=== PATIENT | female | born 1990 ===

== ENCOUNTER 2018-09-29 06:48 | Emergency (ER) | payer MEDICAID, SELFPAY ==
[2015-08-29 15:02] VITALS: BMI 31.8
--- NOTE | 2018-09-29 09:22 | OBHP ---
Datetime: 09/29/2018 08:42 IP Adm Impression: Term, intrauterine IP Admit Plan: Observation/Evaluation; Discharge home Admit Comment, IP Provider: 28 y/o @ 39.5 w/HOMA of 10/01/2018 complaining of ctxs since [address] night every hour that increased to every 10 minutes this AM. She endorses +FM, and denies loss of fluid. Denies any f/c/n/v/chest discomfort or difficulty breathing.Patient sees Dr. Lombardi @ [place]. OBGYNhx: 1 , 2014 PMH: denies Allergies: NKA Meds: PNV Famhx: denies Sochx: denies cigarette, EtOH or elicit drug use Surghx: denies ROS: all points reviwed and neg unless otherwise mentioned in HPI Gen: laying upright in bed breathing comforting Cardio: s1 s2, no murmurs Lungs: resp effort good; cta Abd: soft, BS+, nontender Pelvic: 3cm dilated Ext: nonedematous A/P: 28 y/o @ 39.5 w/HOMA of 10/01/2018 complaining of ctx. -3cm dilated; rechecked in 1 hr and cervical exam remained unchanged -Patient discharged home with labor precautions Case discussed with Dr. Best/Dr. La -Sanj[facility] , PGY-[address] La: I have evaluated the patient independently and I agree with the above Extremities - PN: Normal Abdomen - PN: Normal Lungs - PN: Normal Heart - PN: Normal General - PN: Normal Membranes, Provider: Intact Gestation - Est Wks by US: 39.5 Pool Provider: Negative IP Hx Assessment: The History has been Reviewed and is Current EGA AdmitDate IP: 39.5 Vital Signs Provider: Reviewed IP Chief Complaint: Uterine contractions NICHD Decel Fetus A IP Provider: None Dilatation, Provider: 3 Effacement, Provider: 40 Station, Provider: -3
--- NOTE | 2018-09-29 09:24 | OBDCSUM ---
Datetime: 09/29/2018 09:07 Discharged to, Provider: [facility] Activity: Normal activity Disch Instr Diet: Regular Discharge Diagnosis, Provider: False Labor - Undelivered Discharge Time: 09/29/2018 09:08 Follow up in weeks, Provider: 10/01/18 Disch Referrals: None
[2018-09-29 14:54] VITALS: BP 109/63; PULSE 94; TEMP 98.8; O2SAT 99
== END 2018-09-29 09:24 | disposition home or self-care (01) ==
LOC: H.EROB2 06:48 → H.L&D 06:58 → H.EROB2 09:24
DX: O26.93 Pregnancy related conditions, unspecified, third trimester (principal); R10.2 Pelvic and perineal pain; Z3A.39 39 weeks gestation of pregnancy

== ENCOUNTER 2018-09-29 21:07 | Inpatient (IN) | payer MEDICAID, SELFPAY ==
[2018-09-29 22:03] VITALS: BMI 28.7
[2018-09-29] MEDS ORDERED: Lactated Ringer's 1,000 ML IV ONE (22:07)
[2018-09-29] MEDS ORDERED: Oxytocin 30 UNIT 30 UNITS/500 ML BAG IV ONE (22:08)
[2018-09-29] MEDS ORDERED: Fentanyl/Bupivacaine HCl 250 ML EPI ONE (22:09)
[2018-09-29] MEDS: Lactated Ringer's 1,000 ML IV ONE ×2 (22:22→23:21)
[2018-09-29 22:26] LABS: BASO # 0.1 K/uL (0.0-0.2); BASO % 0.8 % (0.0-2.0); EOS # 0.1 K/uL (0.0-0.7); HEMOGLOBIN 13.3 g/dL (12.0-16.0); LYMPH # 2.4 K/uL (1.0-4.3); LYMPH % 19.9 % (20.0-40.0); MEAN CELL VOLUME 90.7 fl (81.0-99.0); MEAN PLATELET VOLUME 8.8 fl (7.2-11.7); MONO % 8.7 % (0.0-10.0); NEUT # 8.3 K/uL (1.8-7.0); NEUT % 69.6 % (50.0-75.0); RBC 4.45 Mil/uL (3.80-5.20); RED CELL DISTRIBUTION WIDTH 14.8 % (11.5-14.5)
[2018-09-30] MEDS ORDERED: Lidocaine 1% Inj (20ml) ONE (04:46)
[2018-09-30] MEDS: Lactated Ringer's 1,000 ML IV ONE (06:30)
[2018-09-30 06:57] VITALS: RESP 19
--- NOTE | 2018-09-30 07:39 | OBPN ---
Datetime: 09/30/2018 07:34 IP Progress Impression: Normal progression of labor IP Informed Consent Obtain: Vaginal Delivery IP Procedures: Sterile Vag Exam IP Progress Plan: Continue present management Membranes, Provider: Ruptured Amniotic Fluid Color, Provider: Clear Contraction Comments Provider: q 4 mins FHR - Baseline A Provider: 155 IP Progress Note Comment: Patient evaluated, feeling some pressure VE = 10/100/+1, AROM FHR = 150 mod alyssia, no accels, +early decelerations A/P 1. patient progressing well, now in second stage of labor. Will sit in high fowlers and start push ing shortly 2. CEFM and TOCO Vital Signs Provider: Reviewed; Within Normal Limits NICHD Variability Prov Fetus A: Moderate 6-25bpm Dilatation, Provider: 10 Effacement, Provider: 100 Station, Provider: 1 NICHD Decel Fetus A IP Provider: Early Datetime: 09/29/2018 22:26 Pool Provider: Negative Presentation-Admit: Vertex NICHD Accel Fetus A IP Provider: 15X15 FHR Category Provider Fetus A: Category I Datetime: 09/29/2018 08:42 Gestation - Est Wks by US: 39.5
--- NOTE | 2018-09-30 07:41 | OBADHP ---
Datetime: 09/30/2018 07:34 FHR - Baseline A Provider: 155 Amniotic Fluid Color, Provider: Clear Membranes, Provider: Ruptured Contraction Comments Provider: q 4 mins Vital Signs Provider: Reviewed; Within Normal Limits NICHD Variability Prov Fetus A: Moderate 6-25bpm NICHD Decel Fetus A IP Provider: Early Dilatation, Provider: 10 Effacement, Provider: 100 Station, Provider: 1 Datetime: 09/29/2018 22:26 Admit Comment, IP Provider: Malcolme: [id number] Pt is an 28yo F IUP @39.5wk HOMA is 10/01/18 based on LMP 12/25/17 and U/S done on 05/15/18. Pt is here for a contractions every 5 mins, this morning they were every 15 mins at 6am she came to [facility] and was sent home at 3cm dilated. Pt has reddish mucous and clots when she went to the bathroom. Denies LOF, headaches, fevers, dizziness, blurry vision, chest pain, SOB, nausea, vomiting, diarrhea, constipation, dysuria; Reports good movement. 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 Lungs: clear to auscultation bilaterally, no wheezing, rales or rhonchi Abdomen: Gravid, soft non tender to palpation, + BS LE: No edema Heart Rate: 150, moderate variability, Category 1, 15x15 Bimanual- 4-5cm, 70% effaced, -3 A/P: 28yo F IUP @39.5wk here with contractions Q 5mins -Admit to L _ D -Initiate Labor protocol -Bimanual -4-5cm, 70% effaced, -3 -IVF, Pitocin -Ordered 3rd TM labs, HBsAg, HIV, RPR, Type and screen, CBC with Diff -Monitor heart tracings 150 moderate variability, Category 1 , 15x15 -Bedside U/S -cephalic Case reviewed and discussed with Attending Leesa Pino M.D. PGY-[address] La: I have evaluated the patient independently and I agree with the above Pelvic Type - PN: Adequate Extremities - PN: Normal Abdomen - PN: Normal Back - PN: Not Done Breast - PN: Not Done Lungs - PN: Normal Heart - PN: Normal Thyroid - PN: Not Done Neurologic - PN: Not Done HEENT - PN: Normal General - PN: Normal Presentation-Admit: Vertex Comments, ACOG Physical Exam: -Bimanual -4-5cm, 70% effaced, -3 Pool Provider: Negative IP Hx Assessment: The History has been Reviewed and is Current IP Chief Complaint: Uterine contractions; Maternal discomfort NICHD Accel Fetus A IP Provider: 15X15 FHR Category Provider Fetus A: Category I Genitourinary Exam: Normal DTRs - PN: Not Done EGA AdmitDate IP: 39.5 IP Adm Impression: Term, intrauterine ; Intact Membranes IP Admit Plan: Admit to unit; Initiate labor protocol Datetime: 09/29/2018 08:42 Gestation - Est Wks by US: 39.5
[2018-09-30] MEDS ORDERED: Oxycodone/Acetaminophen 5/325 mg Tab PO PRN (08:52)
[2018-09-30] MEDS: OXYTOCIN/0.9 % NS 20 UNIT/1,000 ML BAG IV SCH ×2 (09:20→14:15)
--- NOTE | 2018-09-30 13:05 | OBDS ---
DELIVERY PERSONNEL Delivery Doctor: Aric Best DO Boring Inspector: Nica Munroe RN Resident: Dr. Hernandez MATERNAL INFORMATION Delivery Anesthesia: Local; Epidural Medications in Delivery: Pitcoin 30units in IVF 0.9%NS 500ml Estimated Blood Loss (ml): 30 Placenta Cultured: No Maternal Complications: None RN Comments: Prior to placenta delivery 150ml noted. Total Fluid following delivery of placenta wa s 180ml. EBL: 30ml Provider Comments: of live, viable female infant, apgars 9/9 with infant bulbed suctioned _ bobbi meredith on mother's chest for skin to skin. The cord was double clamped, and then cut by father. Cord bl ood was obtained. Placenta delivered intact spontaneuously. Prior to placenta [id number] of fluid. Total fluid following delivery of placenta was 180cc, Total EBL = 30ml. OB Hospitalist on-call. With PGY1, I attended and did perinela repair LABOR SUMMARY EDC: 10/01/2018 00:00 No. Babies in Womb: 1 Attempted: No Labor Anesthesia: Epidural LABOR INFORMATION Reason for Induction: Not Applicable Onset of Labor: 09/29/2018 06:00 Complete Dilatation: 09/30/2018 07:30 Oxytocin: N/A Group B Beta Strep: Negative Antibiotics # of Doses: n/a Antibiotics Time of Last Dose: n/a Steroids Given: None Reason Steroids Not Administered: Not Applicable MEMBRANES Membranes Rupture Method: Spontaneous Rupture of Membranes: 09/30/2018 07:30 Length of Rupture (hrs): 0.90 Amniotic Fluid Color: Clear Amniotic Fluid Amount: Small Amniotic Fluid Odor: Normal STAGES OF LABOR Stage 1 hrs: 25 Stage 1 min: 30 Stage 2 hrs: 0 Stage 2 min: 54 Stage 3 hrs: 0 Stage 3 min: 18 Total Time in Labor hrs: 26 Total Time in Labor min: 42 VAGINAL DELIVERY Episiotomy: None Laceration Extension: Second Degree Laceration Type: Perineal Laceration Repair: Yes Laceration Repair Note: 2nd degree laceration was repaired with 2.0 vicryl rapide. 1% Lidocain infil trated (3cc) Initial Vag Sponge Count: 5 laps with ring Final Vag Sponge Count: 5 laps with ring Initial Vag Sharps Count: 1 needle, 1 suture Final Vag Sharps Count: 1 needle, 1 suture Sponge Count Correct: Yes Sharps Count Correct: Yes Count Comment: count correct and acknowledged by Dr. Best/Dr. Hernandez. BABY A INFORMATION Infant Delivery Date/Time: 09/30/2018 08:24 Method of Delivery: Vaginal Born in Route : No : N/A Forceps: N/A Vacuum Extraction: N/A Shoulder Dystocia : No SHOULDER DYSTOCIA BABY A Infant Delivery Date/Time: 09/30/2018 08:24 PRESENTATION/POSITION BABY A Presentation: Cephalic Cephalic Presentation: N/A Breech Presentation: N/A PLACENTA INFORMATION BABY A Placenta Delivery Time : 09/30/2018 08:42 Placenta Method of Delivery: Spontaneous Placenta Status: Delivered SCORES BABY A Heart Rate 1 min: >100 bpm Resp Effort 1 min: Good Cry Reflex Irritability 1 min: Cough or Sneeze or Pulls Away Muscle Tone 1 min: Active Motion Color 1 min: Body [place], Extremities Blue Resuscitation Effort 1 min: Tactile Stimulation SCORE 1 MIN: 9 Heart Rate 5 min: >100 bpm Resp Effort 5 min: Good Cry Reflex Irritability 5 min: Cough or Sneeze or Pulls Away Muscle Tone 5 min: Active Motion Color 5 min: Body [place], Extremities Blue Resuscitation Effort 5 min: N/A SCORE 5 MIN: 9 INFORMATION BABY A Gestational Age at Delivery: 39.6 Gestational Status: Term Infant Outcome : Liveborn Infant Condition : Stable Sex: Female IDENTIFICATION/MEDS BABY A ID Band Number: [id number] ID Band Location: Left Leg; Left Arm Vitamin K Given : Not Given Erythromycin Given: Not Given WEIGHT/LENGTH BABY A Birthweight (gms): 2840 Infant Weight (lb): 6 Weight (oz): 4 CORD INFORMATION BABY A No. Cord Vessels: 3 Nuchal Cord : N/A Cord Blood Taken: Yes Suction: Mouth; Nose ASSESSMENT BABY A Complications: None Physical Findings at Delivery: Within Normal Limits Respirations: Appears Normal Quick Service Technician/ALS Called : No Infant Care By: leann Plaza/Thomas/May Transferred To: Remains with Mother
[2018-09-30] MEDS: Benzocaine/Menthol SPRAY TOP PRN (14:17)
[2018-10-01 06:34] LABS: BASO % 0.2 % (0.0-2.0); EOS # 0.2 K/uL (0.0-0.7); EOS % 1.8 % (0.0-4.0); HEMOGLOBIN 11.6 g/dL (12.0-16.0); LYMPH # 2.8 K/uL (1.0-4.3); LYMPH % 22.8 % (20.0-40.0); MEAN CORPUSCULAR HEMOGLOBIN 30.6 pg (27.0-31.0); MEAN CORPUSCULAR HGB CONC 33.3 g/dL (33.0-37.0); MEAN PLATELET VOLUME 8.8 fl (7.2-11.7); MONO # 0.8 K/uL (0.0-0.8); MONO % 6.7 % (0.0-10.0); NEUT # 8.5 K/uL (1.8-7.0); NEUT % 68.5 % (50.0-75.0); NRBC % 0.1 % (0.0-0.0); RBC 3.79 Mil/uL (3.80-5.20); RED CELL DISTRIBUTION WIDTH 14.6 % (11.5-14.5); WHITE BLOOD COUNT 12.4 K/uL (4.8-10.8)
[2018-10-02] MEDS: Benzocaine/Menthol SPRAY TOP PRN (08:58)
[2018-10-02] MEDS ORDERED: Influenza Vaccine (5 YR UP)/PF 60 MCG/0.5 ML SYR IM ONE (09:00)
--- NOTE | 2018-10-02 10:01 | OBPPN ---
Datetime: 10/02/2018 06:32 PP Pain Prov: Within normal limits PP Nausea Prov: Denies PP Flatus Prov: Yes PP BM Prov: No PP Breasts Prov: Not Done PP Heart Prov: Normal PP Lungs Prov: Normal PP Abdomen/Uterus Prov: Normal PP Lochia Prov: Normal PP Vulva/Perineum Prov: Not Done PP CVA Tenderness Prov: Not Done PP Extremities Prov: Abnormal PP Impression Prov: Normal progression; Pain PP Plan Prov: Continue present management; Discharge PP Impression Other Prov: L leg pain PP Progress Note Prov: Voyce: [id number] PPD2 S: 28yo delivered on 09/30/18 @8:24am. Seen and examined at bedside this morning. No acute events overnight. Pt reports L leg pain in the groin region that radiates down the leg to the f oot associated with mild swelling, and mild abdominal pain controlled with pain meds. Ambulating well without dizziness. Breast and bottle feeding without difficulty. Tolerating PO diet. Lochia similar to menses, voiding freely no blood noted, Pt has not had a bowel movement but is passing gas per rect um. Denies fever/chills, diarrhea/constipation, nausea/vomiting, CP/SOB, dizziness. O: PHYSICAL EXAM: GEN: Resting comfortably in bed, NAD HEENT: NCAT, EOMI LUNGS: CTA B/L, no wheezing, rhonchi, or rales CVS: RRR, S1, S2, no m/r/g ABD: ND, +BS, firm fundus @ umbilical level, soft, appropriate TTP EXT: Trace edema noted, No L calf pain on palpation, positive straight leg raise on L A/P: 28yo delivered on 09/30/18 @8:24am. Pt doing well on PPD2 Pain medication for leg pain- controlled with pain meds Tolerating regular diet OOB with caution Continue vitamin Ibuprofen 600 mg 1 tab q6 hrs po if mild pain. Encouraged Anticipate discharge to home on 10/02/18 F/U 4-6 week's post- with Itz Marcum and tenter frame operator in 1 week for a appt- 42 [place] genline Case reviewed and discussed with Attending Leesa Pino M.D. PGY-1 Attending addendum: I saw and examined the patient at bedside myself this morning. I reviewed the resident note above and agree with findings and management. DC home today. Maggie Sauceda MD IP PP Procedures: None Vital Signs Provider PP: Reviewed; Within Normal Limits Datetime: 10/01/2018 06:12 PP C/S Incision Prov: Not Applicable PP Progress Prov: Normal PP Comments Phys Exam Prov: L calf mild tenderness to palpation, positive straight leg raise on L
--- NOTE | 2018-10-02 10:01 | OBDCSUM ---
Datetime: 10/02/2018 06:46 Discharged to, Provider: Home Follow up at, Provider: Itz Marcum Disch Instr Activity: Normal activity Disch Instr Diet: Regular Discharge Instructions, Provider: Routine instructions given Discharge Diagnosis, Provider: Term Delivered Discharge Time: 10/02/2018 06:46 Follow up in weeks, Provider: 4-6 weeks for PP appt and 1 week for appt Disch Referrals: None Contraception discussed, Prov: Yes Disch Activity Restrictions: No exercising; No lifting; Minimize stair-climbing; No sexual activity; Nothing in vagina - [place], tampons, douche Discharge Comment, Provider: DISCHARGE 28yo delivered on 09/30/18 @8:24am. Pt doing well on PPD2 EGA: 39.5 weeks Diagnosis: Summary of : No complications DOD: 09/30 @ 8:24am Sex: Female Weight: 2840gm : 99 Feeding: Breast and bottle summary: Pt endorsed L leg pain in groin, radiating down leg, controlled with pain meds. No calf tenderness or homans sign Pt had lochia similar to menses, Pt hemodynamically stable CBC : 11.6/34.9 (admission 13.3/34.4) Blood type: O+ DISCHARGE DATA D/C DATE: 10/02/2018 DISCHARGE INSTRUCTIONS: -Encouraged -PNV 1 tab po q/day -Ibuprofen 600 mg 1 tab po q4-6h PRN mild pain #30 -Ambulate with caution, nothing per vagina/sex for 4 weeks, no heavy lifting, avoid stairs, if exc essive bleeding or fever without relief from Tylenol go to ED F/U 4-6 week's post- with Itz Marcum and molasses preparer in 1 week for a appt- 42 [place]ad genline Case reviewed and discussed with Attending Leesa Pino M.D. PGY-1 Attending addendum: I saw and examined the patient at bedside myself this morning. I reviewed the resident note above and agree with findings and management. DC home today. Maggie Sauceda MD Contraception after Delivery: Undecided
[2018-10-02 19:40] VITALS: BP 108/64; PULSE 78; TEMP 97.8; O2SAT 99
== END 2018-10-02 14:30 | disposition home or self-care (01) | DRG 560 ==
LOC: H.EROB2 21:07 → H.L&D 22:04 → H.OB/GYN 09-30 13:55
PROVIDERS: ADMIT Obstetrics & Gynecology; ATTEND Obstetrics & Gynecology
PROC: 4A1HXCZ Monitoring of Products of Conception, Cardiac Rate, External Approach (ICD-10-PCS; 2018-09-29)
PROC: 10E0XZZ Delivery of Products of Conception, External Approach (ICD-10-PCS; principal; 2018-09-30)
PROC: 0KQM0ZZ Repair Perineum Muscle, Open Approach (ICD-10-PCS; 2018-09-30)
DX: O70.1 Second degree perineal laceration during delivery (principal); Z37.0 Single live birth; Z3A.39 39 weeks gestation of pregnancy